=== PATIENT | female | born 1930 | race Caucasian/White ===

== ENCOUNTER 2016-06-17 06:21 | Inpatient (IN) | payer MEDICARE, BC ==
[~2016-06-17] VITALS: Ht 160 cm; Wt 50.3 kg
[2016-06-17] MEDS ORDERED: DIGO250T PO (06:48)
[2016-06-17] MEDS ORDERED: FURO-152 PO (06:49)
[2016-06-17] MEDS ORDERED: ASPI-866 PO (06:51)
[2016-06-17] MEDS ORDERED: MORP60TA4 PO (06:51)
[2016-06-17] MEDS ORDERED: VICODIN PO (06:53)
[2016-06-17] MEDS ORDERED: DIAZ10TA PO (06:54)
--- NOTE | 2016-06-17 07:23 | NUR ---
SBAR report given to Ashlyn GAO.
--- NOTE | 2016-06-17 07:28 | NUR ---
Report given to Luda in U.
--- NOTE | 2016-06-17 07:49 | NUR ---
PT TRANSFERED TO [facility] VIA WHEELCHAIR, ALL BELONGINGS TAKEN.
[2016-06-17 07:50] VITALS: BP 166/83
[2016-06-17] MEDS ORDERED: ZOLPIDEM 5 MG TABLET PO PRN (08:15)
[2016-06-17] MEDS ORDERED: MAG HYDROX/AL HYDROX/SIMETH 30 ML LIQUID UDC PO PRN (08:15)
[2016-06-17] MEDS ORDERED: MAGNESIUM HYDROXIDE 30 ML LIQUID UDC PO PRN (08:15)
[2016-06-17] MEDS ORDERED: LORAZEPAM 1 MG TABLET PO PRN (08:15)
[2016-06-17] MEDS ORDERED: ACETAMINOPHEN 325 MG TABLET PO PRN (08:15)
[2016-06-17] MEDS ORDERED: HYDROCODONE/APAP 5-325MG TABLET PO PRN (11:30)
[2016-06-17] MEDS ORDERED: CLONIDINE HCL 0.1 MG TABLET PO PRN (11:30)
[2016-06-17] MEDS ORDERED: MORPHINE SULFATE SR 30 MG TABLET.SA PO SCH (11:30)
--- NOTE | 2016-06-17 11:47 | NUR ---
GPS/RN- patient advised she takes eye drops for her eyes, contacted her pharmacy [facility] [phone]. verified eye drop information, also verified that patient has not been filling any MS Contin nor Rossiter. Verified Digoxin and Lasix doses. pharmacy advised to hold medications until able to verify prescriber.
--- NOTE | 2016-06-17 13:00 | NUR ---
WEEKLY MEETING PT IS NEW ADMIT, ZERO PO INTAKE RECORDED LAST BM METAL MOULDER SKIN INTACT NO LABS AVAILABLE MEDS: LASIX, NO DNI NOTED NOTED DIETARY CONSULT PLACED FOR WT LOSS OF 40 LBS IN 1 YEAR, TRIED TO INTERVIEW PT, WAS SLEEPING WHEN VISITED ROOM. WILL FOLLOW UP WITH COMPLETE INITIAL ASSESSMENT WITHIN 48 HRS PER HOSPITAL POLICY. NO NUTRITION DIAGNOSIS AT THIS TIME MONITOR LABS, PO, WEIGHT Addendum: 06/17/16 at [address] Amended: Links added.
[2016-06-17] MEDS: DULOXETINE 30 MG CAPSULE.DR PO SCH (14:47)
--- NOTE | 2016-06-17 15:00 | NUR ---
GPS.RN- patient Digoxin level from transferring hospital is 1.4 on 06/16/16 @1520pm.Pharmacy Notified. verified with patient pharmacy [facility] in [place] @ [address] [place] [id number] , spoke with Talita Pharmacist, verified patient is on current MS Contin dose on admitting orders and also verified that patient is on higher dose of Hydrocodone, notified nurse practitioner Luz Maria Mariee, orders received and carried out to adjust Hydrocodone to 10/325 every 4 hours as needed for pain. Received orders also for patient home orders for eye drops Alphagan-P 0.1% for left eye BID, Lumigan 0.01% both eyes every HS and Timolol 0.5% gel solution to both eyes BID.
[2016-06-17 16:00] VITALS: BP 141/66
[2016-06-17] MEDS: HYDROCODONE/APAP 10-325 MG TABLET PO PRN (16:45)
--- NOTE | 2016-06-17 16:52 | NUR ---
GPS/RN- patient continues hypertensive. patient offered Clonidine this afternoon, blood pressure 166/76, HR 88. refused clonidine, patient requested Lasix, contacted pharmacy to adjust med to start today.
[2016-06-17] MEDS ORDERED: BRIMONIDINE-P 0.1% OPHTH DROP 5 ML DROPS LEFTEYE SCH (17:00)
[2016-06-17] MEDS: FUROSEMIDE 20 MG TABLET PO SCH (17:19)
[2016-06-17] MEDS: BRIMONIDINE 0.2% OPHT DROP 10 ML BOTTLE LEFTEYE SCH (17:19)
[2016-06-17 20:30] VITALS: BP 133/69
[2016-06-17] MEDS: QUETIAPINE FUMARATE 25 MG TABLET PO SCH (20:46)
[2016-06-17] MEDS: MORPHINE SULFATE SR 30 MG TABLET.SA PO SCH (20:46)
--- NOTE | 2016-06-17 20:58 | NUR ---
PATIENT RECEIVED IN GROUP INTERACTING WITH PEERS. OBSERVED WITH FLAT AFFECT, PT DOES ENDORSE HALLUCINATIONS "THREE GUYS TALKING TO ME TELLING ME I AM READY TO GO HOME". DENIES ANY SI AT THIS TIME. NO ACUTE DISTRESS NOTED. SAFETY MEASURES MAINTAINED.
[2016-06-17] MEDS ORDERED: BIMATOPROST 0.01% OPHT DROP 2.5 ML BOTTLE EACHEYE SCH (21:00)
[2016-06-17] MEDS: LATANOPROST OPHT DROP 2.5 ML BOTTLE EACHEYE SCH (22:07)
[2016-06-18 07:05] LABS: BASOPHILS % (AUTO) 0.6 % (0.0-2.0); EOSINOPHILS # (AUTO) 0.6 K/uL (0.0-0.7); EOSINOPHILS % (AUTO) 7.9 % (0.0-7.0); HEMATOCRIT 31.2 % (31.2-41.9); HEMOGLOBIN 10.2 g/dL (10.9-14.3); LYMPHOCYTES # (AUTO) 2.1 K/uL (20.0-40.0); LYMPHOCYTES % (AUTO) 26.6 % (20.5-51.5); MEAN CORPUSCULAR HEMOGLOBIN 27.3 uug (24.7-32.8); MEAN CORPUSCULAR HGB CONC 33 g/dL (32.3-35.6); MEAN CORPUSCULAR VOLUME 83.5 fL (75.5-95.3); NEUTROPHILS # (AUTO) 4.3 K/uL (1.8-8.9); NEUTROPHILS % (AUTO) 51.9 % (38.5-71.5); PLATELET COUNT (AUTO) 299 K/uL (179-408); RED BLOOD CELL COUNT(AUTO) 3.74 MIL/uL (3.63-4.92); RED CELL DISTRIBUTION WIDTH 17.1 % (12.3-17.7)
[2016-06-18 07:26] LABS: BILIRUBIN,TOTAL 0.4 mg/dL (0.2-1.0); CALCIUM 9.4 mg/dL (8.5-10.1); CREATININE 0.7 mg/dL (0.6-1.3); MAGNESIUM 1.9 mg/dL (1.8-2.4); PHOSPHOROUS 3.5 mg/dL (2.5-4.9); POTASSIUM 4.2 mmol/L (3.5-5.1); THYROID STIMULATING HORMONE 4.946 mIU/mL (0.358-3.740); TOTAL PROTEIN, SERUM 7.1 g/dL (6.4-8.2)
[2016-06-18 07:30] VITALS: BP 106/59
[2016-06-18 07:38] LABS: DIGOXIN 1.1 ng/mL (0.9-2.0)
[2016-06-18] MEDS: DIGOXIN 250 MCG TABLET PO SCH (08:43)
[2016-06-18] MEDS: ASPIRIN EC 81 MG TABLET.DR PO SCH (08:43)
[2016-06-18] MEDS: DULOXETINE 30 MG CAPSULE.DR PO SCH (08:43)
[2016-06-18] MEDS: FUROSEMIDE 20 MG TABLET PO SCH ×2 (08:53→16:28)
[2016-06-18] MEDS: MORPHINE SULFATE SR 30 MG TABLET.SA PO SCH ×2 (08:53→20:23)
[2016-06-18] MEDS: TIMOLOL MALEATE XE 0.5% OPHT 5 ML BOTTLE EACHEYE SCH (08:54)
[2016-06-18] MEDS: BRIMONIDINE 0.2% OPHT DROP 10 ML BOTTLE LEFTEYE SCH ×2 (08:54→16:29)
[2016-06-18] MEDS ORDERED: FUROSEMIDE 20 MG TABLET PO SCH (09:00)
--- NOTE | 2016-06-18 09:10 | NUR ---
Initial discharge instructions: The patient resides at [[address] [place] [address]; ]. Spoke with the patient who stated that she would like to return home because her needs her. SW asked the patient is she feels safe returning home with her but the patient was not clear in her response, stating that "he needs me." SW explained to the patient that she may benefit from short term rehabilitation at a SNF given her current mental and physical state. The patient stated that she is open to SNF placement and would like to know what options there are for placement. SW will speak with patient, family, and MD regarding most appropriate discharge plan. SS will form a safe and proper discharge.
--- NOTE | 2016-06-18 10:02 | NUR ---
Stockroom Inventory Clerk: The patient was positive for opiates, positive for benzodiazepine at the previous hospital. Patient will be provided with substance abuse intervention and will be provided with the appropriate referrals upon discharge.
[2016-06-18 16:00] VITALS: BP 142/81
[2016-06-18] MEDS ORDERED: NORMAL SALINE FLUSH 10 ML DISP.SYRIN ONE (18:00)
[2016-06-18] MEDS ORDERED: IOHEXOL 300MG/ML 100 ML INFUS..BTL ONE (18:00)
[2016-06-18] MEDS ORDERED: IV NORMAL SALINE 250 ML IV ONE (18:00)
[2016-06-18 20:02] VITALS: BP 123/69
[2016-06-18] MEDS: QUETIAPINE FUMARATE 25 MG TABLET PO SCH (20:22)
[2016-06-18] MEDS: LATANOPROST OPHT DROP 2.5 ML BOTTLE EACHEYE SCH (20:23)
--- NOTE | 2016-06-19 00:50 | NUR ---
GOT A CALL FROM GREENHOUSE SPECIALIST [facility] [place] STATING A COMMUTATOR ASSEMBLER WAS HERE AT THE HOSPITAL LOBBY TO SEE PT; LYNDSAY MINER, I SPOKE TO THE COMMUTATOR ASSEMBLER BY THE NAME [facility] [phone] LETTING HER KNOW THAT THE PT IS SLEEPING AND ASKED IF SHE OR HER COLLEAGUE COULD COME BACK AT A LATER TIME, SHE STATED SHE ONLY NEEDED TO OBSERVE THE PT TO MAKE SURE SHE IS SAFE. DOBBY LOOM WEAVER CARY WAS NOTIFIED. DOBBY LOOM WEAVER AFTER SPEAKING TO THE SW, PERMITTED HER TO COME TO THE UNIT TO OBSERVE THE PT, SHE WAS ESCORTED BY ONE OF THE SAFETY OFFICERS, UPON ENTERING THE UNIT, SHE WAS TAKEN TO THE PT'S ROOM, WHERE SHE TOOK OUT HER PHONE FLASH LIGHT TO OBSERVE THE PT LOOKING AT HER ARMS, FOR A MINUTE OR ALSO, UPON LEAVING THE ROOM, SHE SAID "THE PT IS SAFE", THE SW WAS LET OUT OF THE UNIT.
[2016-06-19 07:30] VITALS: BP 136/76
[2016-06-19] MEDS: FUROSEMIDE 20 MG TABLET PO SCH (08:20)
[2016-06-19] MEDS: TIMOLOL MALEATE XE 0.5% OPHT 5 ML BOTTLE EACHEYE SCH (08:20)
[2016-06-19] MEDS: DIGOXIN 250 MCG TABLET PO SCH (08:20)
[2016-06-19] MEDS: DULOXETINE 30 MG CAPSULE.DR PO SCH (08:20)
[2016-06-19] MEDS: BRIMONIDINE 0.2% OPHT DROP 10 ML BOTTLE LEFTEYE SCH ×2 (08:20→16:13)
[2016-06-19] MEDS: ASPIRIN EC 81 MG TABLET.DR PO SCH (08:21)
[2016-06-19] MEDS: MORPHINE SULFATE SR 30 MG TABLET.SA PO SCH ×2 (08:35→21:02)
[2016-06-19] MEDS: HYDROCODONE/APAP 10-325 MG TABLET PO PRN (12:31)
[2016-06-19 15:56] VITALS: BP 130/73
--- NOTE | 2016-06-19 16:34 | NUR ---
Director Global Strategic Publisher Sales The patient was assessed today by AMANDA Mckeon, signs and displays sales representative from [facility] at 3:30 pm today for possible admission to their facility.
[2016-06-19] MEDS: QUETIAPINE FUMARATE 25 MG TABLET PO SCH (20:55)
[2016-06-19 20:57] VITALS: BP 122/68
[2016-06-19] MEDS: LATANOPROST OPHT DROP 2.5 ML BOTTLE EACHEYE SCH (21:02)
[2016-06-20 07:30] VITALS: BP 115/69
[2016-06-20] MEDS: DIGOXIN 250 MCG TABLET PO SCH (08:11)
[2016-06-20] MEDS: FUROSEMIDE 20 MG TABLET PO SCH (08:11)
[2016-06-20] MEDS: MORPHINE SULFATE SR 30 MG TABLET.SA PO SCH ×2 (08:11→21:21)
[2016-06-20] MEDS: ASPIRIN EC 81 MG TABLET.DR PO SCH (08:11)
[2016-06-20] MEDS: DULOXETINE 30 MG CAPSULE.DR PO SCH (08:11)
[2016-06-20] MEDS: BRIMONIDINE 0.2% OPHT DROP 10 ML BOTTLE LEFTEYE SCH ×2 (08:13→17:54)
[2016-06-20] MEDS: TIMOLOL MALEATE XE 0.5% OPHT 5 ML BOTTLE EACHEYE SCH (08:14)
--- NOTE | 2016-06-20 15:00 | NUR ---
PTS RIGHT HAND IS RED, WARM TO TOUCH, AND SWOLLEN. TOOK PICTURE FOR CHART. STATES "I WAS PRACTICING MY HANDWRITING A LOT EARLIER. IT HURT THIS MORNING BUT WAS NOT SWOLLEN OR RED YET." WILL NOTIFY .
[2016-06-20 16:00] VITALS: BP 128/68
[2016-06-20 21:03] VITALS: BP 140/75
[2016-06-20] MEDS: QUETIAPINE FUMARATE 25 MG TABLET PO SCH (21:20)
[2016-06-20] MEDS: LATANOPROST OPHT DROP 2.5 ML BOTTLE EACHEYE SCH (21:22)
[2016-06-21 07:30] VITALS: BP 103/56
[2016-06-21 07:41] LABS: THYROID STIMULATING HORMONE 4.666 mIU/mL (0.358-3.740)
[2016-06-21 07:51] LABS: BASOPHILS % (AUTO) 0.2 % (0.0-2.0); EOSINOPHILS # (AUTO) 0.8 K/uL (0.0-0.7); EOSINOPHILS % (AUTO) 9.1 % (0.0-7.0); HEMATOCRIT 28.9 % (31.2-41.9); HEMOGLOBIN 9.6 g/dL (10.9-14.3); LYMPHOCYTES # (AUTO) 1.8 K/uL (20.0-40.0); LYMPHOCYTES % (AUTO) 21.3 % (20.5-51.5); MEAN CORPUSCULAR HEMOGLOBIN 27.4 uug (24.7-32.8); MEAN CORPUSCULAR HGB CONC 33 g/dL (32.3-35.6); MEAN CORPUSCULAR VOLUME 82.7 fL (75.5-95.3); MONOCYTES # (AUTO) 1.3 K/uL (2.0-10.0); MONOCYTES % (AUTO) 14.8 % (0.0-11.0); NEUTROPHILS # (AUTO) 4.6 K/uL (1.8-8.9); NEUTROPHILS % (AUTO) 54.6 % (38.5-71.5); PLATELET COUNT (AUTO) 286 K/uL (179-408); RED BLOOD CELL COUNT(AUTO) 3.49 MIL/uL (3.63-4.92); RED CELL DISTRIBUTION WIDTH 16.8 % (12.3-17.7); WHITE BLOOD COUNT (AUTO) 8.5 K/uL (3.8-11.8)
[2016-06-21] MEDS: MORPHINE SULFATE SR 30 MG TABLET.SA PO SCH ×2 (09:23→21:07)
[2016-06-21] MEDS: ASPIRIN EC 81 MG TABLET.DR PO SCH (09:26)
[2016-06-21] MEDS: DIGOXIN 250 MCG TABLET PO SCH (09:26)
[2016-06-21] MEDS: FUROSEMIDE 20 MG TABLET PO SCH (09:26)
[2016-06-21] MEDS: DULOXETINE 30 MG CAPSULE.DR PO SCH (09:26)
[2016-06-21] MEDS: TIMOLOL MALEATE XE 0.5% OPHT 5 ML BOTTLE EACHEYE SCH (09:27)
[2016-06-21] MEDS: BRIMONIDINE 0.2% OPHT DROP 10 ML BOTTLE LEFTEYE SCH ×2 (09:27→17:55)
[2016-06-21 10:18] LABS: ALBUMIN 2.9 g/dL (3.4-5.0); BILIRUBIN,TOTAL 0.3 mg/dL (0.2-1.0); CALCIUM 9.2 mg/dL (8.5-10.1); CREATININE 0.8 mg/dL (0.6-1.3); PHOSPHOROUS 4.5 mg/dL (2.5-4.9); POTASSIUM 4.5 mmol/L (3.5-5.1); TOTAL PROTEIN, SERUM 6.8 g/dL (6.4-8.2)
[2016-06-21] MEDS: SULFAMETH/TRIMETH 800/160 MG TABLET PO SCH ×2 (15:09→21:05)
[2016-06-21 16:00] VITALS: BP 147/84
[2016-06-21] MEDS: HYDROCODONE/APAP 10-325 MG TABLET PO PRN (17:59)
[2016-06-21] MEDS: LATANOPROST OPHT DROP 2.5 ML BOTTLE EACHEYE SCH (21:05)
[2016-06-21] MEDS: QUETIAPINE FUMARATE 25 MG TABLET PO SCH (21:05)
[2016-06-21 21:21] VITALS: BP 111/63
[2016-06-22 07:30] VITALS: BP 120/60
[2016-06-22] MEDS: ASPIRIN EC 81 MG TABLET.DR PO SCH (08:40)
[2016-06-22] MEDS: DULOXETINE 30 MG CAPSULE.DR PO SCH (08:40)
[2016-06-22] MEDS: SULFAMETH/TRIMETH 800/160 MG TABLET PO SCH (08:40)
[2016-06-22] MEDS: DIGOXIN 250 MCG TABLET PO SCH (08:40)
[2016-06-22] MEDS: FUROSEMIDE 20 MG TABLET PO SCH (08:40)
[2016-06-22] MEDS: MORPHINE SULFATE SR 30 MG TABLET.SA PO SCH (08:41)
[2016-06-22] MEDS: TIMOLOL MALEATE XE 0.5% OPHT 5 ML BOTTLE EACHEYE SCH (08:47)
[2016-06-22] MEDS: BRIMONIDINE 0.2% OPHT DROP 10 ML BOTTLE LEFTEYE SCH (09:04)
[2016-06-22] MEDS ORDERED: DOCUSATE SODIUM 100 MG CAPSULE PO SCH (14:15)
[2016-06-22] MEDS ORDERED: MAGNESIUM HYDROXIDE 30 ML LIQUID UDC PO ONE (14:15)
--- NOTE | 2016-06-22 15:07 | NUR ---
Primary School Principal SW has called the patient's assigned CHRISTIE Longoria Franco (APS# [id number]) multiple times and left voicemails to see if she will be coming to assess the patient. Per report, APS CHRISTIE Dewitt ([phone] came to assess the patient on 06/19/16 at 00:50 stating that she only wanted to observe the pt to make sure she is safe. She took out her phone and used the flash light to observe the patient, looked at her arms for a minute and then stated "the pt is safe" and left. 06/19/16 3:30 pm left message regarding discharge planning 06/22/16 3:00 pm left a voicemail informing NIKOLAS Longoria that the patient is being discharged today and will be returning back to her home with her .
--- NOTE | 2016-06-22 15:23 | NUR ---
GPS/RN- PATIENT ORDERS TODAY FOR COLACE AND MILK OF MAGNESIA, PATIENT OFFERED REFUSED, STATED SHE IS NOT CONSTIPATED, PATIENT HAS BM USUALLY EVERY 2 DAYS PER PATIENT, OFFERED PRESCRIPTION FOR MEDS, REFUSED, SHE ADVISED SHE GOES FINE.
--- NOTE | 2016-06-22 15:44 | NUR ---
DC Note: The patient will be discharged today back home [[address] [place] [address]; ] via private car. Spoke with the patient and informed her that she has been accepted to [facility] however the patient refused placement and stated that she would like to go home today. The patient stated that she feels safe returning home with her Johnathan García . Christie called the patient's brother Jv and informed him of the discharge plan. The patient will follow-up with her Case Liner Dr. Johnathan Macdonald [[address] [place] [address] ]. The patient does not have a psychiatrist however CHRISTIE called Dr. Macdonald's office and spoke with Adrianne who stated that the patient was referred to a Dr. Morrison by Dr. Macdonald however she could not provide the first name. The patient may also follow-up with psychiatrists Dr. Jennifer Cosme [[address], [place] [address] ], Dr. Belle Cedeño [[address], [place] [address] ], [address]. Mc Perez [[address] [place] [address] ]. The patient was provided with the brief intervention for substance abuse and was referred to [facility] , [facility] , and [facility] . Addendum: 06/22/16 at 1627 by PAUL SORIANO Received a call back from Adrianne at Dr. Macdonald's office providing the name and contact information for the psychotherapist referral: Dr. Prince Duenas [[address] [place] [address] [address], [place] [address] ].
--- NOTE | 2016-06-22 15:48 | NUR ---
GPS/RN- Contacted Dr Quinones for orders to be confirmed. Contacted [facility] pharmacy [phone]. Spoke with pharmacist, Se. orders called for psychiatrist: Cymbalta 30mg by mouth daily (10 day supply) (note patient was changed to 60mg of Cymbalta today however per Dr Quinones to continue on prior decreased dose) Seroquel 25mg by mouth at bedtime (10 day supply). Meds called in for Epic: Bactrim DS 1 tablet by mouth every 12 hours for infection for 6 days. Patient has all other prescriptions at home; patient refused Colace and Milk of Magnesia.
[2016-06-22 15:50] VITALS: BP 138/75
--- NOTE | 2016-06-22 16:51 | NUR ---
GPS.RN- DISCHARGE NOTE Patient is alert and oriented to person place time and situation. patient is compliant with meds and care, able to verbalize needs. Denies any SI/HI, denies any hallucinations. Patient instructed on medications and follow up care within 10 days of discharge. patient instructed on safety. Instructed on calling 911 or go to nearest ER if feeling suicidal or homicidal increased hallucinations, delusions or anxiety. Patient belongings returned and accounted for. patient discharged with Johnathan via private car. The patient will be discharged today back home [[address] [place] [address]; ] via private car. The patient will follow-up with her Smoke Jumper Supervisor Dr. Johnathan Macdonald [[address] [place] [address] ]. The patient does not have a psychiatrist however food service worker hospital called Dr. Macdonald's office and spoke with Adrianne who stated that the patient was referred to a Dr. Morrison by Dr. Macdonald however she could not provide the first name. The patient may also follow-up with psychiatrists Dr. Jennifer Cosme [[address], [place] [address] ], Dr. Belle Cedeño [[address], [place] [address] ], or Dr. Mc Perez [[address], [place] [address] [address] Dr. Macdonald's office providing the name and contact information for the psychotherapist referral: Dr. Prince Duenas [[address], [place] [address] ]. Questions and concerns addressed at discharge, discharged in stable condition
[2016-06-23] MEDS ORDERED: DULOXETINE 60 MG CAPSULE.DR PO SCH (09:00)
[2016-06-23] MEDS ORDERED: DULOXETINE 30 MG CAPSULE.DR PO SCH (09:00)
== END 2016-06-22 17:02 | disposition home or self-care (01) | DRG 885 ==
LOC: ER 06:31 → GPS 07:38
PROVIDERS: ADMIT Psychiatry & Neurology Psychiatry; ATTEND Internal Medicine
DX: F32.3 Major depressive disorder, single episode, severe with psychotic features (principal); E44.0 Moderate protein-calorie malnutrition; Z68.1 Body mass index [BMI] 19.9 or less, adult; L03.113 Cellulitis of right upper limb; R17 Unspecified jaundice; Z85.3 Personal history of malignant neoplasm of breast; H35.30 Unspecified macular degeneration; Z96.653 Presence of artificial knee joint, bilateral; I48.91 Unspecified atrial fibrillation; Z79.82 Long term (current) use of aspirin; Z98.42 Cataract extraction status, left eye; Z98.41 Cataract extraction status, right eye; Z96.1 Presence of intraocular lens; K21.9 Gastro-esophageal reflux disease without esophagitis; Z90.710 Acquired absence of both cervix and uterus; Z90.721 Acquired absence of ovaries, unilateral; G89.29 Other chronic pain; I67.2 Cerebral atherosclerosis; D64.9 Anemia, unspecified; I10 Essential (primary) hypertension; H40.9 Unspecified glaucoma; Z63.9 Problem related to primary support group, unspecified; Z90.49 Acquired absence of other specified parts of digestive tract; Z79.899 Other long term (current) drug therapy; F11.10 Opioid abuse, uncomplicated
CPT/HCPCS: 36415; 70470; 73130; 83735; 84100; 84443; 85025; 95819; 97001; A4663; J3490; J3590; J7050; Q9967